=== PATIENT | male | born 1985 | race Caucasian/White ===

== ENCOUNTER → 2017-11-14 | Outpatient (CLI) | payer BC ==
[~2017-11-14] MED LIST: AMOX1TAB64 PO; BUDE0.5P INH; FLUT1DIS IH; FLUT9.9S NS; MONT10TA9 PO; PRED10TA PO
== END | disposition home or self-care (01) ==
LOC: STAR 16:12
PROVIDERS: ATTEND Otolaryngology
DX: Z02.9 Encounter for administrative examinations, unspecified (principal)

== ENCOUNTER 2017-11-19 05:27 | Observation (INO) | payer BC ==
[2017-11-14 16:11] VITALS: BP 135/80
[~2017-11-19] VITALS: Ht 182.9 cm; Wt 75.5 kg
[~2017-11-19 05:27] MED LIST changes: -AMOX1TAB64 PO
[2017-11-19] MEDS ORDERED: LACTATED RINGERS 1,000 ML IV SCH ×2 (06:01→13:30)
[2017-11-19] MEDS ORDERED: LIDOCAINE-MPF 1%, 2ML INFIL ONE (06:30)
[2017-11-19] MEDS ORDERED: OXYMETAZOLINE NASAL SPRAY 0.05%, 15ML ONE (07:00)
[2017-11-19] MEDS ORDERED: BACITRACIN OINT 500U/GM, 15 GM ONE (07:00)
[2017-11-19] MEDS ORDERED: FLUORESCEIN SODIUM 500 MG/5 ML ONE (07:00)
[2017-11-19] MEDS ORDERED: EPINEPHRINE TOPICAL SOLN 1 MG/ML, 30ML ONE (07:00)
[2017-11-19] MEDS ORDERED: LIDOCAINE 1%-EPI 1:100K, 30ML ONE (07:00)
[2017-11-19] MEDS ORDERED: HYDROCORTISONE 100 MG INJ. ONE (07:29)
[2017-11-19] MEDS ORDERED: FENTANYL PF 250 MCG/5ML ONE (07:31)
[2017-11-19] MEDS ORDERED: MIDAZOLAM 1 MG/ML, 2ML ONE (07:34)
[2017-11-19] MEDS ORDERED: CEFAZOLIN 1,000 MG ONE (07:39)
[2017-11-19] MEDS ORDERED: ONDANSETRON 2MG/ML, 2ML ONE (07:39)
[2017-11-19] MEDS ORDERED: SUCCINYLCHOLINE 20 MG/ML, 10ML ONE (07:39)
[2017-11-19] MEDS ORDERED: PROPOFOL 10 MG/ML, 50ML ONE (07:39)
[2017-11-19] MEDS ORDERED: FENTANYL PF 100 MCG/2ML ONE (08:00)
[2017-11-19] MEDS ORDERED: hydrALAzine 20 MG/ML, 1ML ONE (08:08)
[2017-11-19] MEDS ORDERED: FENTANYL PF 100 MCG/2ML IV PRN (08:30)
[2017-11-19] MEDS ORDERED: ONDANSETRON 2MG/ML, 2ML IV PRN (08:30)
[2017-11-19] MEDS ORDERED: ACETAMINOPHEN 325 MG TABLET PO PRN ×2 (08:30→18:00)
[2017-11-19] MEDS ORDERED: HYDROmorphone 1 MG/ML, 1ML IV PRN (08:30)
[2017-11-19] MEDS ORDERED: MIDAZOLAM 1 MG/ML, 2ML IV PRN (08:30)
[2017-11-19] MEDS ORDERED: OXYcodone 5 MG/5 ML ORAL.SOL UDC PO PRN (08:30)
[2017-11-19] MEDS ORDERED: hydrALAzine 20 MG/ML, 1ML IV PRN (08:30)
[2017-11-19] MEDS ORDERED: LABETALOL 5MG/ML, 20ML IV PRN (08:30)
[2017-11-19] MEDS ORDERED: ALBUMIN HUMAN 5% 500 ML ONE (09:00)
[2017-11-19] MEDS ORDERED: HYDROcodone/APAP 5/325 TABLET PO PRN (13:30)
[2017-11-19] MEDS ORDERED: ONDANSETRON 2MG/ML, 2ML IVPush PRN (13:30)
[2017-11-19] MEDS ORDERED: MORPHINE SULFATE 4 MG/ML, 1ML IVPush PRN (13:30)
[2017-11-19 13:36] VITALS: BP 131/73
[2017-11-19] MEDS: SODIUM CHLORIDE 0.9% 1,000 ML IV SCH ×2 (15:00→20:58)
[2017-11-19] MEDS: AMPICILLIN/SULBACTAM 3 GM in SODIUM CHLORIDE 0.9% 100 ML IV SCH ×2 (15:34→20:58)
[2017-11-19 17:29] LABS: BASOPHILS # (AUTO) 0.03 x10^3/uL (0-0.1); BASOPHILS % (AUTO) 0 % (0-1); EOSINOPHILS # (AUTO) 0.01 x10^3/uL (0-0.4); EOSINOPHILS % (AUTO) 0 % (1-7); LYMPHOCYTES % (AUTO) 22 % (22-44); MD NO; MEAN CORPUSCULAR HEMOGLOBIN 33.6 pg (27.5-34.5); MEAN CORPUSCULAR HGB CONC 34.5 g/dL (33.2-36.2); MEAN CORPUSCULAR VOLUME 97.3 fL (81-97); MEAN PLATELET VOLUME 9.5 fL (7.4-10.4); MONOCYTES # (AUTO) 0.69 x10^3/uL (0.2-0.8); MONOCYTES % (AUTO) 7 % (2-9); NEUTROPHILS # (AUTO) 6.89 x10^3/uL (1.8-6.8); NEUTROPHILS % (AUTO) 70 % (42-75); PLATELET COUNT 171 x10^3/uL (130-400); RED BLOOD COUNT 3.88 x10^6/uL (4.38-5.82); RED CELL DISTRIBUTION WIDTH 11.9 % (9.4-14.8)
[2017-11-19 19:12] VITALS: BP 125/73
[2017-11-20 00:02] VITALS: BP 110/65
[2017-11-20] MEDS: AMPICILLIN/SULBACTAM 3 GM in SODIUM CHLORIDE 0.9% 100 ML IV SCH ×2 (02:56→09:00)
[2017-11-20 02:57] VITALS: BP 120/69
[2017-11-20 05:32] LABS: BASOPHILS # (AUTO) 0.02 x10^3/uL (0-0.1); BASOPHILS % (AUTO) 0 % (0-1); EOSINOPHILS # (AUTO) 0.31 x10^3/uL (0-0.4); EOSINOPHILS % (AUTO) 4 % (1-7); LYMPHOCYTES # (AUTO) 2.59 x10^3/uL (1-3.4); LYMPHOCYTES % (AUTO) 32 % (22-44); MD NO; MEAN CORPUSCULAR HEMOGLOBIN 33.6 pg (27.5-34.5); MEAN CORPUSCULAR HGB CONC 34.2 g/dL (33.2-36.2); MEAN CORPUSCULAR VOLUME 98.2 fL (81-97); MEAN PLATELET VOLUME 9.5 fL (7.4-10.4); MONOCYTES # (AUTO) 0.78 x10^3/uL (0.2-0.8); MONOCYTES % (AUTO) 10 % (2-9); NEUTROPHILS # (AUTO) 4.29 x10^3/uL (1.8-6.8); NEUTROPHILS % (AUTO) 54 % (42-75); PLATELET COUNT 158 x10^3/uL (130-400); RED BLOOD COUNT 3.74 x10^6/uL (4.38-5.82); RED CELL DISTRIBUTION WIDTH 12.5 % (9.4-14.8)
[2017-11-20] MEDS ORDERED: SODIUM CHLORIDE 0.9% 1,000 ML IV SCH ×2 (06:00→15:00)
[2017-11-20 08:00] VITALS: BP 117/73
[2017-11-20] MEDS ORDERED: BUDESONIDE INH SCH (09:00)
[2017-11-20] MEDS ORDERED: FLUTICASONE/VILANTEROL 100-25MCG/INH INH SCH (09:00)
[2017-11-20] MEDS ORDERED: MONTELUKAST 10 MG TABLET PO SCH (09:00)
[2017-11-20] MEDS ORDERED: AMOX1TAB64 PO (09:35)
== END 2017-11-20 10:08 | disposition home or self-care (01) ==
LOC: OUT 05:27 → 4NOR 13:01 → OUT 13:11 → 4NOR 13:12 → DCLOUNGE 11-20 09:53
PROVIDERS: ADMIT Otolaryngology; ATTEND Internal Medicine
DX: J32.9 Chronic sinusitis, unspecified (principal); J33.8 Other polyp of sinus; J34.2 Deviated nasal septum
CPT/HCPCS: 30520; 31255; 31267; 31276; 31288; 36415; 85014; 85018; 85025; 88304; 96365; 96366; G0378; J0295; J0330; J0360; J0690; J1720; J2250; J2405; J2704; J3010; J3490; J7030; J7120; P9045